=== PATIENT | male | born 1945 | race Caucasian/White ===

== ENCOUNTER 2017-04-29 07:32 | Day surgery (SDC) | payer OTHER ==
[~2017-04-29 07:32] MED LIST: Lactated Ringers 1,000 ML IV SCH; ceFAZolin 1 GM in Premix Bag 1 BAG IV ONE
--- NOTE | 2017-04-29 08:08 | PCM.PREANE ---
Preanesthetic Assessment - Anesthesia/Transfusion/Family Hx Anesthesia History: Prior Anesthesia Without Reaction Family History of Anesthesia Reaction: No Transfusion History: No Prior Transfusion(s) - Review of Systems General: No Symptoms Pulmonary: No Symptoms Cardiovascular: No Symptoms Gastrointestinal: No symptoms Neurological: No Symptoms Other: Reports: None - Physical Assessment NPO Status Date: 04/28/17 O2 Sat by Pulse Oximetry: 99 Respiratory Rate: 6 Vital Signs: Last Vital Signs Temp 36.2 C 04/29/17 07:38 Pulse 59 L 04/29/17 07:38 Resp 6 L 04/29/17 07:38 BP 147/721 H 04/29/17 07:38 Pulse Ox 99 04/29/17 07:38 Height: 1.8 m Weight: 85.729 kg ASA Class: 2 Mental Status: Alert & Oriented x3 Airway Class: Mallampati = 2 Dentition: Reports: Normal Dentition ROM/Head Extension: Full Lungs: Clear to auscultation, Normal respiratory effort Cardiovascular: Regular Rate, Regular Rhythm - Allergies Allergies/Adverse Reactions: Allergies Allergy/AdvReac Type Severity Reaction Status Date / Time No Known Allergies Allergy Verified 02/12/14 16:06 - Anesthesia Plan Pre-Op Medication Ordered: None - Acknowledgements Anesthesia Type Planned: General Anesthesia Pt an Appropriate Candidate for the Planned Anesthesia: Yes Alternatives and Risks of Anesthesia Discussed w Pt/Guardian: Yes Pt/Guardian Understands and Agrees with Anesthesia Plan: Yes Additional Comments: Pt in choir, has practice tomorrow and performance Wednesday. Would prefer no ETT if possible. PreAnesthesia Questionnaire HEENT History: Reports: Retinal Detachment, Other (See Below) Other HEENT History: wears glasses Cardiovascular History: Reports: High Cholesterol, Hypertension Respiratory History: Reports: Sleep Apnea Other Respiratory History: does not use CPAP Gastrointestinal History: Reports: None Genitourinary History: Reports: Prostate Disorder, Renal Calculus Musculoskeletal History: Reports: Arthritis Neurological History: Oncologic (Cancer) History: Reports: Prostate - Past Surgical History HEENT Surgical History: Reports: Cataract Surgery, Other (See Below) Other HEENT Surgeries/Procedures: surgery for detached retina GI Surgical History: Reports: Appendectomy, Cholecystectomy Male Surgical History: Reports: Kidney Stone Extraction, Prostatectomy Neurological Surgical History: Reports: C-Spine Other Neurological Surgeries/Procedures: hx neck surgery Musculoskeletal Surgical History: Reports: Arthroscopic Knee, Other (See Below) Other Musculoskeletal Surgeries/Procedures:: hx thumb surgery and knee arthroscopy - SUBSTANCE USE Smoking Status *Q: Never Smoker Recreational Drug Use History: No - HOME MEDS Home Medications: Home Meds Hydrochlorothiazide 25 mg PO DAILY 02/12/14 [History] Simvastatin [Zocor] 20 mg PO BEDTIME 02/12/14 [History] Aspirin [[place] Aspirin] 81 mg PO DAILY 04/27/17 [History] Losartan Potassium 50 mg PO DAILY 04/27/17 [History] Papaverine HCl/Alprostad/Water [Papavrn 30Mg-Alprstdl 20Mcg/ml] 1 injection IM ASDIRECTED PRN 04/27/17 [History] Potassium 83 mg PO DAILY 04/27/17 [History] - CURRENT (IN HOUSE) MEDS Current Meds: Current Medications Lactated Ringer's (Ringers, Lactated) 1,000 mls @ 100 mls/hr IV ASDIRECTED [facility] Last Admin: 04/29/17 07:41 Dose: 100 mls/hr Discontinued Medications Cefazolin Sodium/Dextrose 1 gm (/ Premix) 50 mls @ 100 mls/hr IV ONCALL ONE Stop: 04/29/17 07:29
[2017-04-29] MEDS ORDERED: fentaNYL 100 MCG/2 ML SDV ONE (09:12)
[2017-04-29] MEDS ORDERED: Midazolam 1 MG/ML 2 ML SDV ONE (09:12)
[2017-04-29] MEDS ORDERED: Propofol 200 MG/20 ML SDV ONE (09:13)
[2017-04-29] MEDS ORDERED: Iopamidol 408 MG/ML 50 ML SDV ONE (09:19)
[2017-04-29] MEDS ORDERED: ePHEDrine 50 MG/ML SDV ONE (09:51)
[2017-04-29] MEDS ORDERED: Dexamethasone 4 MG/ML 5 ML MDV ONE (10:05)
[2017-04-29] MEDS ORDERED: Ondansetron 4 MG/2 ML SDV ONE (10:05)
[2017-04-29] MEDS ORDERED: Ketorolac 30 MG/ML SDV ONE (10:10)
--- NOTE | 2017-04-29 11:09 | PCM.POSTAN ---
POST ANESTHESIA ASSESSMENT - MENTAL STATUS Mental Status: alert, oriented - RESPIRATORY Respiratory Status: respiratory rate WNL - CARDIOVASCULAR CV Status: pulse rate WNL, blood pressure stable - GASTROINTESTINAL GI Status: no symptoms - PAIN Pain Score: 0 - POST OP HYDRATION Hydration Status: adequate & stable - OBSERVATIONS Free Text/Narrative:: no anesthesia problems
--- NOTE | 2017-04-29 11:20 | OR ---
SURGEON: Erika Kelly M.D. DATE OF PROCEDURE: 04/29/2017 PREOPERATIVE DIAGNOSIS: Right lower ureteral stone. POSTOPERATIVE DIAGNOSIS: Right lower ureteral stone. OPERATION: Ureteroscopy, laser lithotripsy, and removal of stones. DESCRIPTION OF PROCEDURE: The patient was given general anesthesia, placed in dorsal lithotomy position, prepped and draped in sterile drapes. Cystourethroscopy was done that was normal minus the prostate. The right ureter was cannulated with a guidewire alongside the stone. The lower ureter was then dilated using UroMax II balloon dilator to approximately 15-Bolivian. The 12-Bolivian rigid Storz ureteroscope was advanced in the right lower ureter all the way up to the stone, which was visualized and broken up into a multitude of pieces using the laser. All the pieces were removed using the Zero Tip basket. The bigger pieces were submitted for analysis. The bladder was emptied and the patient was moved to recovery room in good condition. SATHYA / JUDY /[id number]
[2017-04-29 11:29] VITALS: BP 148/72
--- NOTE | 2017-04-29 15:18 | CR ---
EXAMINATION: Ureteroscopy HISTORY: Calculus COMPARISON: CT dated 04/19/2017 TECHNIQUE: Single view FINDINGS/IMPRESSION: Single operative control film demonstrates selection of the right ureter during cystoscopy.
== END 2017-04-29 11:58 | disposition home or self-care (01) ==
LOC: MW.SDS 07:32
PROVIDERS: ATTEND Urology
PROC: 0TF68ZZ Fragmentation in Right Ureter, Via Natural or Artificial Opening Endoscopic (ICD-10-PCS; principal; 2017-04-29)
DX: N13.2 Hydronephrosis with renal and ureteral calculous obstruction (principal); E78.00 Pure hypercholesterolemia, unspecified; I10 Essential (primary) hypertension; G47.30 Sleep apnea, unspecified; M19.90 Unspecified osteoarthritis, unspecified site; Z85.46 Personal history of malignant neoplasm of prostate; Z79.82 Long term (current) use of aspirin; Z79.899 Other long term (current) drug therapy; Z87.442 Personal history of urinary calculi; Z90.49 Acquired absence of other specified parts of digestive tract; Z90.79 Acquired absence of other genital organ(s); Z90.89 Acquired absence of other organs; Z98.890 Other specified postprocedural states
CPT/HCPCS: 52353; 76000; J1100; J1885; J2250; J2405; J3010; J7120; Q9966; 00918; 88300; C1769; J2704